=== PATIENT | male | born 1970 | race Caucasian/White ===

== ENCOUNTER 2023-03-20 08:05 | Emergency (ER) | payer OTHER, MEDICAID ==
[~2023-03-20] VITALS: Ht 170.2 cm; Wt 113.4 kg
[2023-03-20 08:07] VITALS: BP 129/99; PULSE 72; RESP 17; TEMP 97.7; O2SAT 98
[2023-03-20] MEDS ORDERED: ACETAMINOPHEN EXTRA STRENGTH 500 MG TAB PO ONE (08:20)
[2023-03-20] MEDS ORDERED: LORazepam 1 MG TAB PO ONE (08:20)
[2023-03-20] MEDS ORDERED: IBUPROFEN 600 MG TAB PO ONE (08:20)
[2023-03-20 09:20] LABS: BASOPHILS # (AUTO) 0.1 K/uL (0.00-0.22); BASOPHILS % (AUTO) 0.7 % (0.0-2.0); EOSINOPHILS # (AUTO) 0.2 K/uL (0-0.4); EOSINOPHILS % (AUTO) 2.1 % (0.0-4.0); HEMATOCRIT 45.6 % (36-52); HEMOGLOBIN 15.6 g/dL (12.0-18.0); LYMPHOCYTES # (AUTO) 2.2 K/uL (2.0-11.5); LYMPHOCYTES % (AUTO) 27.1 % (20.5-51.1); MEAN CORPUSCULAR HEMOGLOBIN 31 pg (27-31); MEAN CORPUSCULAR HGB CONC 34 g/dL (33-37); MEAN CORPUSCULAR VOLUME 90.6 fL (80-94); MONOCYTES # (AUTO) 0.7 K/uL (0.8-1.0); MONOCYTES % (AUTO) 8.8 % (1.7-9.3); NEUTROPHILS % (AUTO) 61.3 % (42.2-75.2); PLATELET COUNT (AUTO) 174 K/uL (140-450); RED BLOOD CELL COUNT(AUTO) 5.03 MIL/uL (4.20-6.10); WHITE BLOOD COUNT (AUTO) 8.2 K/uL (4.8-10.8)
[2023-03-20 09:54] LABS: ALBUMIN 4.2 g/dL (3.4-5.0); ANION GAP 12.6 (8-16); CARBON DIOXIDE 30.6 mmol/L (21-32); CREATININE 1.1 mg/dL (0.6-1.3); POTASSIUM 4.2 mmol/L (3.5-5.1); TOTAL BILIRUBIN 0.5 mg/dL (0.0-1.0)
[2023-03-20] MEDS ORDERED: TAM75 PO (09:56)
[2023-03-20] MEDS ORDERED: ACET-10509 PO (09:56)
[2023-03-20 12:01] VITALS: BP 125/87; PULSE 74; RESP 17; O2SAT 98
--- NOTE | 2023-03-20 12:01 | NUR ---
Patient discharged with v/s stable. Written and verbal after care instructions given and explained. Patient verbalized understanding. Ambulatory with steady gait. All questions addressed prior to discharge. Advised to follow up with PMD.
== END 2023-03-20 11:12 | disposition home or self-care (01) ==
LOC: MED 08:05
DX: J10.1 Influenza due to other identified influenza virus with other respiratory manifestations (principal); Z20.822 Contact with and (suspected) exposure to COVID-19; Z79.899 Other long term (current) drug therapy
CPT/HCPCS: 36415; 71045; 80053; 85025; 99284

== ENCOUNTER 2023-05-20 22:29 | Emergency (ER) | payer OTHER, MEDICAID ==
[~2023-05-20] VITALS: Ht 175.3 cm; Wt 144.7 kg
[~2023-05-20 22:29] MED LIST: ACET-10509 PO; TAM75 PO
[2023-05-20 22:43] VITALS: BP 120/82; PULSE 86; RESP 18; TEMP 98; O2SAT 98
[2023-05-21] MEDS ORDERED: LORazepam 2 MG/ML VIAL IM ONE (00:05)
[2023-05-21] MEDS ORDERED: ATI.5 PO (00:12)
[2023-05-21] MEDS ORDERED: PRIM50TA21 PO (00:12)
[2023-05-21 00:57] VITALS: BP 120/82; PULSE 86; RESP 18; TEMP 98; O2SAT 98
== END 2023-05-21 00:57 | disposition home or self-care (01) ==
LOC: MED 22:29
DX: F41.9 Anxiety disorder, unspecified (principal); G47.00 Insomnia, unspecified; I10 Essential (primary) hypertension; Z76.0 Encounter for issue of repeat prescription; Z90.49 Acquired absence of other specified parts of digestive tract; Z88.0 Allergy status to penicillin; Z79.899 Other long term (current) drug therapy
CPT/HCPCS: 96372; 99283; J2060

== ENCOUNTER 2023-05-29 08:12 | Emergency (ER) | payer OTHER, MEDICAID ==
[~2023-05-29] VITALS: Ht 175.3 cm; Wt 141.1 kg
[~2023-05-29 08:12] MED LIST changes: +ATI.5 PO; +PRIM50TA21 PO
[2023-05-29 08:35] VITALS: BP 136/88; PULSE 135; RESP 20; TEMP 97.9; O2SAT 99
[2023-05-29] MEDS ORDERED: NACL 0.9% 1,000 ML IV ONE (09:50)
[2023-05-29] MEDS ORDERED: LORazepam 1 MG TAB PO ONE (09:50)
[2023-05-29] MEDS ORDERED: ONDANSETRON 4 MG ODT PO ONE (09:50)
[2023-05-29 10:03] LABS: BASOPHILS # (AUTO) 0.1 K/uL (0.00-0.22); BASOPHILS % (AUTO) 0.8 % (0.0-2.0); EOSINOPHILS % (AUTO) 0.5 % (0.0-4.0); HEMATOCRIT 41.9 % (36-52); HEMOGLOBIN 14.5 g/dL (12.0-18.0); LYMPHOCYTES # (AUTO) 1.4 K/uL (2.0-11.5); LYMPHOCYTES % (AUTO) 17.6 % (20.5-51.1); MEAN CORPUSCULAR HEMOGLOBIN 31 pg (27-31); MEAN CORPUSCULAR HGB CONC 35 g/dL (33-37); MONOCYTES # (AUTO) 0.7 K/uL (0.8-1.0); NEUTROPHILS % (AUTO) 73.1 % (42.2-75.2); PLATELET COUNT (AUTO) 175 K/uL (140-450); RED BLOOD CELL COUNT(AUTO) 4.65 MIL/uL (4.20-6.10); RED CELL DISTRIBUTION WIDTH 13.4 % (11.6-13.7); WHITE BLOOD COUNT (AUTO) 8.2 K/uL (4.8-10.8)
[2023-05-29 10:30] LABS: ALANINE AMINOTRANSFERASE 30 U/L (12-78); ALBUMIN 4.2 g/dL (3.4-5.0); ALKALINE PHOSPHATASE 79 U/L (50-136); ANION GAP 13.2 (8-16); ASPARTATE AMINOTRANSFERASE 29 U/L (15-37); CALCIUM 8.8 mg/dL (8.5-10.1); CARBON DIOXIDE 27.4 mmol/L (21-32); CHLORIDE 97 mmol/L (98-107); CREATININE 1.2 mg/dL (0.6-1.3); GFR ARICAN-AMERICAN 81 mL/min (>90); GFR NON ARICAN-AMERICAN 67 mL/min (>90); GLUCOSE 130 mg/dL (74-106); POTASSIUM 3.6 mmol/L (3.5-5.1); SODIUM SERUM 134 mmol/L (136-145); TOTAL BILIRUBIN 0.7 mg/dL (0.0-1.0); TOTAL PROTEIN, SERUM 7.7 g/dL (6.4-8.2); UREA NITROGEN, BLOOD 9 mg/dL (7-18)
[2023-05-29 11:55] VITALS: BP 127/71; PULSE 79; RESP 20; TEMP 98; O2SAT 99
[2023-05-29 14:52] VITALS: O2SAT 99
== END 2023-05-29 14:53 | disposition home or self-care (01) ==
LOC: MED 08:12
DX: F41.9 Anxiety disorder, unspecified (principal); R25.1 Tremor, unspecified; R07.89 Other chest pain; I10 Essential (primary) hypertension; F32.9 Major depressive disorder, single episode, unspecified; Z88.0 Allergy status to penicillin; Z79.899 Other long term (current) drug therapy
CPT/HCPCS: 36415; 71045; 80053; 82948; 83880; 84484; 85025; 93005; 96360; 99285; J7030; Q0162

== ENCOUNTER 2023-09-14 19:08 | Emergency (ER) | payer OTHER, MEDICAID ==
[~2023-09-14] VITALS: Ht 172.7 cm; Wt 90.7 kg
[2023-09-14 19:20] VITALS: BP 164/72; PULSE 77; RESP 18; TEMP 98.6; O2SAT 98
[2023-09-14] MEDS ORDERED: LORazepam 2 MG/ML VIAL IM ONE (19:50)
[2023-09-14] MEDS ORDERED: ONDANSETRON 4 MG ODT PO ONE (20:00)
[2023-09-14 20:16] VITALS: BP 166/102; PULSE 79; RESP 20; TEMP 98.3
[2023-09-14 20:20] VITALS: O2SAT 97
[2023-09-14] MEDS ORDERED: ATA25 PO (20:27)
== END 2023-09-14 20:34 | disposition home or self-care (01) ==
LOC: MED 19:08
DX: F41.9 Anxiety disorder, unspecified (principal); I10 Essential (primary) hypertension; F31.9 Bipolar disorder, unspecified; Z86.69 Personal history of other diseases of the nervous system and sense organs; Z79.899 Other long term (current) drug therapy; Z88.0 Allergy status to penicillin
CPT/HCPCS: 93005; 96372; 99283; J2060; Q0162

== ENCOUNTER 2024-03-04 11:59 | Emergency (ER) | payer OTHER, MEDICAID ==
[~2024-03-04] VITALS: Ht 165.1 cm; Wt 136.1 kg
[~2024-03-04 11:59] MED LIST changes: +ATA25 PO
[2024-03-04 12:03] VITALS: BP 147/98; PULSE 108; RESP 20; TEMP 98.3; O2SAT 99
[2024-03-04 13:17] LABS: BASOPHILS % (AUTO) 0.4 % (0.0-2.0); EOSINOPHILS # (AUTO) 0.1 K/uL (0-0.4); EOSINOPHILS % (AUTO) 0.6 % (0.0-4.0); HEMOGLOBIN 13.7 g/dL (12.0-18.0); LYMPHOCYTES # (AUTO) 1.3 K/uL (2.0-11.5); LYMPHOCYTES % (AUTO) 14.5 % (20.5-51.1); MEAN CORPUSCULAR HEMOGLOBIN 29 pg (27-31); MEAN CORPUSCULAR HGB CONC 33 g/dL (33-37); MONOCYTES # (AUTO) 0.9 K/uL (0.8-1.0); MONOCYTES % (AUTO) 9.8 % (1.7-9.3); NEUTROPHILS # (AUTO) 6.8 K/uL (1.8-7.7); NEUTROPHILS % (AUTO) 74.7 % (42.2-75.2); PLATELET COUNT (AUTO) 150 K/uL (140-450); RED BLOOD CELL COUNT(AUTO) 4.77 MIL/uL (4.20-6.10); RED CELL DISTRIBUTION WIDTH 18.7 % (11.6-13.7); WHITE BLOOD COUNT (AUTO) 9.2 K/uL (4.8-10.8)
[2024-03-04] MEDS: ACETAMINOPHEN EXTRA STRENGTH 500 MG TAB PO ONE (13:20)
[2024-03-04 14:00] VITALS: BP 140/79; PULSE 80; RESP 15; O2SAT 99
[2024-03-04 14:06] LABS: ANION GAP 14.1 (8-16); CALCIUM 8.7 mg/dL (8.5-10.1); CARBON DIOXIDE 25.5 mmol/L (21-32); POTASSIUM 3.6 mmol/L (3.5-5.1)
[2024-03-04 14:18] LABS: ALANINE AMINOTRANSFERASE 18 U/L (12-78); ALBUMIN 3.8 g/dL (3.4-5.0); ALKALINE PHOSPHATASE 76 U/L (50-136); ASPARTATE AMINOTRANSFERASE 17 U/L (15-37); BILIRUBIN,DIRECT 0.2 mg/dL (0.0-0.3); TOTAL BILIRUBIN 0.7 mg/dL (0.0-1.0); TOTAL PROTEIN, SERUM 7.2 g/dL (6.4-8.2)
[2024-03-04] MEDS: LORazepam 1 MG TAB PO ONE (14:21)
== END 2024-03-04 15:10 | disposition home or self-care (01) ==
LOC: MED 11:59
DX: F41.9 Anxiety disorder, unspecified (principal); R07.89 Other chest pain; R20.0 Anesthesia of skin; R51.9 Headache, unspecified; F32.9 Major depressive disorder, single episode, unspecified; I10 Essential (primary) hypertension; Z86.69 Personal history of other diseases of the nervous system and sense organs; Z79.1 Long term (current) use of non-steroidal anti-inflammatories (NSAID); Z79.899 Other long term (current) drug therapy; Z88.0 Allergy status to penicillin
CPT/HCPCS: 36415; 71045; 80048; 80076; 82947; 84484; 85025; 93005; 99284; 99285

== ENCOUNTER 2024-03-10 22:40 | Emergency (ER) | payer OTHER, MEDICAID ==
[~2024-03-10] VITALS: Ht 175.3 cm; Wt 135.2 kg
[2024-03-10 22:40] VITALS: BP 131/78; PULSE 84; RESP 17; TEMP 97.6; O2SAT 97
[2024-03-11] MEDS: ACETAMINOPHEN EXTRA STRENGTH 500 MG TAB PO ONE (01:09)
[2024-03-11] MEDS: LORazepam 1 MG TAB PO ONE (01:09)
[2024-03-11 01:26] VITALS: BP 117/80; PULSE 86; RESP 17; TEMP 98; O2SAT 98
== END 2024-03-11 01:26 | disposition home or self-care (01) ==
LOC: MED 22:40
DX: F41.9 Anxiety disorder, unspecified (principal); I10 Essential (primary) hypertension; Z88.0 Allergy status to penicillin; Z79.899 Other long term (current) drug therapy
CPT/HCPCS: 99283

== ENCOUNTER 2024-04-24 23:05 | Emergency (ER) | payer OTHER, MEDICAID ==
[~2024-04-24] VITALS: Ht 185.4 cm; Wt 154.2 kg
[2024-04-24 23:10] VITALS: BP 139/78; PULSE 96; RESP 16; TEMP 97.4; O2SAT 95
[2024-04-25] MEDS ORDERED: ONDA-188 SL (01:50)
[2024-04-25] MEDS: ONDANSETRON 4 MG ODT PO ONE (02:03)
[2024-04-25] MEDS: ACETAMINOPHEN EXTRA STRENGTH 500 MG TAB PO ONE (02:03)
== END 2024-04-25 02:23 | disposition home or self-care (01) ==
LOC: MED 23:05
DX: R11.0 Nausea (principal); R42 Dizziness and giddiness; Z87.440 Personal history of urinary (tract) infections; I10 Essential (primary) hypertension; Z86.69 Personal history of other diseases of the nervous system and sense organs; Z79.899 Other long term (current) drug therapy; Z88.0 Allergy status to penicillin
CPT/HCPCS: 99283; Q0162